=== PATIENT | female | born 1980 | race Caucasian/White ===

== ENCOUNTER 2019-01-06 11:33 | Emergency (ER) | payer OTHER ==
[~2019-01-06] VITALS: Ht 167.6 cm; Wt 76.2 kg
[2019-01-06 11:54] VITALS: BP 135/94
--- NOTE | 2019-01-06 12:23 | NUR ---
SEEN AND EXAMINED BY DR. RODRIGUEZ
[2019-01-06] MEDS ORDERED: PROCHLORPERAZINE EDISYLATE 10 MG/2 ML VIAL ONE (12:29)
[2019-01-06] MEDS ORDERED: diphenhydrAMINE HCL 50 MG/ML VIAL ONE ×2 (12:29→12:50)
[2019-01-06] MEDS ORDERED: KETOROLAC TROMETHAMINE 15 MG/ML VIAL ONE (12:29)
[2019-01-06] MEDS ORDERED: IV NS 0.9% 1,000 ML BAG IV ONE (12:30)
[2019-01-06] MEDS ORDERED: KETOROLAC TROMETHAMINE INJ 30 MG/ML VIAL IV ONE (12:30)
[2019-01-06] MEDS ORDERED: diphenhydrAMINE HCL 50 MG/ML VIAL IV ONE ×2 (12:30→13:00)
[2019-01-06] MEDS ORDERED: PROCHLORPERAZINE EDISYLATE 10 MG/2 ML VIAL IVP ONE (12:30)
--- NOTE | 2019-01-06 12:30 | NUR ---
URINE SPECIMEN COLLECTED AND SENT TO LAB.
--- NOTE | 2019-01-06 12:40 | NUR ---
IV LINE ESTABLISHED. G20 L AC
--- NOTE | 2019-01-06 13:49 | NUR ---
IV removed. Catheter intact and site benign. Pressure and 4x4 applied to site. No bleeding noted. Patient discharged to home in stable condition. Written and verbal after care instructions given. Patient verbalizes understanding of instruction.
== END 2019-01-06 13:50 | disposition home or self-care (01) ==
LOC: ER 11:41
DX: G43.909 Migraine, unspecified, not intractable, without status migrainosus (principal); R11.2 Nausea with vomiting, unspecified; Z88.1 Allergy status to other antibiotic agents
CPT/HCPCS: 84703; 96361; 96374; 96375; 99283; J0780; J1200 ×2; J1885; J7030